=== PATIENT | male | born 1985 | race American Indian/Alaskan Native ===

== ENCOUNTER 2017-08-23 06:50 | Day surgery (SDC) | payer OTHER ==
[2017-08-23] MEDS ORDERED: ACETAMINOPHEN 500 MG TAB PO ONE (07:27)
[2017-08-23] MEDS ORDERED: ceFAZolin 2 GM/SWFI 2 GM/20 ML SYR IVP ONE (07:27)
[2017-08-23] MEDS ORDERED: LR 1,000 ML IV ONE (07:28)
[2017-08-23] MEDS ORDERED: ACETAMINOPHEN 500 MG TAB ONE (07:31)
[2017-08-23] MEDS ORDERED: THROMBIN (BOVINE) 5,000 UNIT VIAL TP ONE (07:56)
[2017-08-23] MEDS ORDERED: CHLORHEXIDINE GLUC HIBICLENS 118 ML BTL TP ONE (07:56)
[2017-08-23] MEDS ORDERED: BUPIVACAINE 0.25% 30 ML SDV ONE (07:56)
[2017-08-23] MEDS ORDERED: BACITRACIN 50,000 UNITS/10 ML SYR IRR ONE (07:56)
[2017-08-23] MEDS ORDERED: MIDAZOLAM 2 MG/2 ML VIAL IVP ONE (10:15)
--- NOTE | 2017-08-23 10:18 | PDANEPAE ---
ANE History of Present Illness 31 year old with Left back and radicular pain into leg ANE Past Medical History - Cardiovascular History Hx Hypertension: No Hx Arrhythmias: No Hx Chest Pain: No Hx Coronary Artery / Peripheral Vascular Disease: No Hx CHF / Valvular Disease: No Hx Palpitations: No - Pulmonary History Hx COPD: No Hx Asthma/Reactive Airway Disease: No Hx Recent Upper Respiratory Infection: No Hx Oxygen in Use at Home: No Hx Sleep Apnea: No Sleep Apnea Screening Result - Last Documented: Negative Pulmonary History Comment: PNEUMONIA 05/2017 TREATED WITH ANTIBIOTICS NOW RESOLVED - Neurologic History Hx Cerebrovascular Accident: No Hx Seizures: Yes Hx Dementia: No Neurologic History Comment: BRAIN TRAUMA EPLIPESY FROM FOOTBALL CONCUSSIONS 2006 - Endocrine History Hx Diabetes: No - Renal History Hx Renal Disorders: No - Liver History Hx Hepatic Disorders: No - Neurological & Psychiatric Hx Hx Neurological and Psychiatric Disorders: No - Cancer History Hx Cancer: No - Congenital Disorder History Hx Congenital Disorders: No - GI History Hx Gastrointestinal Disorders: No - Other Health History Other Health History: NT DOWN LT LEG/BUTTOCKS - Chronic Pain History Chronic Pain: Yes (NT DOWN LT LEG) - Surgical History Prior Surgeries: LT SHLDR SCOPE ANE Review of Systems Review of systems is: negative Review of Systems: - Exercise capacity METS (RN): 4 METS ANE Patient History - Allergies Allergies/Adverse Reactions: No Known Drug Allergies Allergy (Verified 08/23/17 07:41) - Home Medications Home medications: home medication list seen and reviewed Home Medications: NK [No Known Home Meds] 08/23/17 [Last Taken Unknown] - NPO status NPO Status: no food or drink >8 hours NPO Since - Liquids (Date): 08/22/17 NPO Since - Liquids (Time): 22:00 NPO Since - Solids (Date): 08/22/17 NPO Since - Solids (Time): 19:00 - Anes Hx Anes Hx: no prior problems - Smoking Hx Smoking Status: Never smoked - Alcohol Use Alcohol Use: None ANE Labs/Vital Signs - Labs Result Diagrams: 08/23/17 07:45 - Vital Signs Blood Pressure: 140/86 Heart Rate: 68 Respiratory Rate: 16 O2 Sat (%): 93 Height: 170.18 cm Weight: 79.379 kg ANE Physical Exam - Airway Neck exam: FROM Mallampati Score: Class 1 Mouth exam: normal dental/mouth exam - Pulmonary Pulmonary: no respiratory distress, clear to auscultation - Cardiovascular Cardiovascular: regular rate and rhythym - ASA Status ASA Status: I ANE Anesthesia Plan Anesthesia Plan: general endotracheal anesthesia
--- NOTE | 2017-08-23 10:30 | PDHPUP ---
History & Physical Update H&P update statement: This history and physical update is based on an assessment of the patient which was completed after admission or registration (within 24 hours), but prior to the surgery/procedure. H&P update: H&P reviewed & patient examined, no change in patient's condition since H&P completed
[2017-08-23] MEDS ORDERED: PROPOFOL 200 MG/20 ML VIAL ONE (10:32)
[2017-08-23] MEDS ORDERED: fentaNYL 100 MCG/2 ML INJ ONE ×2 (10:32→12:45)
[2017-08-23] MEDS ORDERED: KETAMINE 200 MG/20 ML VIAL ONE (10:33)
[2017-08-23] MEDS ORDERED: REMIFENTANIL HCL 1 MG VIAL ONE (10:33)
[2017-08-23] MEDS ORDERED: PROPOFOL/EMULSION 500 MG/50 ML BOTTLE IV ONE (10:34)
[2017-08-23] MEDS: SURGIFLO MATRIX KIT WITH THROMBIN 8ml TP ONE ×2 (12:03→12:10)
[2017-08-23] MEDS ORDERED: SURGIFLO MATRIX KIT WITH THROMBIN 8ml TP ONE (12:05)
--- NOTE | 2017-08-23 12:35 | GOP ---
[f rep st] OPERATIVE REPORT DATE OF OPERATION: SURGEON: Imani Nickerson DO NEUROSURGEON: Imani Nickerson DO SUBWAY TRAIN DRIVER: HOLDEN Jason. PREOPERATIVE DIAGNOSIS: L5-S1 foraminal stenosis, L5-S1 herniated nucleus pulposus, radiculopathy. POSTOPERATIVE DIAGNOSIS: L5-S1 foraminal stenosis, L5-S1 herniated nucleus pulposus, radiculopathy. PROCEDURE PERFORMED: Left L5-S1 foraminotomy, microdiskectomy. FINDINGS: SPECIMENS: None. ESTIMATED BLOOD LOSS: 10 mL. INDICATIONS: This is a 31-year-old male with severe foraminal stenosis with central bulging disk and some facet arthropathy, who has failed conservative management and elected to move forward with a fo raminotomy. DESCRIPTION OF PROCEDURE: He was identified, consented. Sites were marked. Brought to the operatin g room, anesthetized under general endotracheal tube anesthesia. Rolled onto the OR bed with a [employer] n frame. All pressure points were appropriately padded. Using an 18-gauge spinal needle we marked t he incision. He was prepped and draped in the usual sterile fashion. Incision was anesthetized with 0.5% Marcaine with epinephrine. Incision was made with a 10 blade. Hemostasis was obtained with Roderick vie and bipolar cautery, dissecting down onto the lamina of L5-S1. Using a Ada 4, took an x-ray . Verified we were in the appropriate position. Measured and placed a Shadow-Line retractor, and us ing the high-speed drill under microscope performed a foraminotomy, medial facetectomy coming down on the ligamentum flavum. Opened this with a ball-tip probe and then used 2 Kerrisons to extend this. I was unable to complete the foraminotomy without performing a microdiskectomy as there was actually a pretty large eccentric piece of disk, so taking the nerve root retractor, retracted the nerve root medially and opened the disk annulus with an 11 blade. We had immediate egress of a pretty good siz e piece of disk material. We had, previous to this, taken an x-ray verifying we were at the appropri ate level. We performed the diskectomy. This allowed us access to the foramen at the level of the d isk, and used the 2 and 3 Kerrisons to complete the foraminotomy. We were well decompressed all the way up the foramina, with the ball-tip probe passing easily. Meticulous hemostasis was obtained with bipolar cautery and irrigation. We irrigated with over a liter of gentamicin-infused saline. Remov ed the Shadow-Line retractor, removed the microscope. Closed the fascia with 0 Vicryl pop-offs, subc utaneous layer of 2-0 Vicryl pop-offs, cutaneous layer of 3-0 Vicryl pop-offs. The skin was closed w ith a 4-0 running Monocryl subcuticular stitch and Steri-Strips. Wound was dressed with gauze and Te gaderm. Neuromonitoring remained stable. Patient tolerated procedure well. No complications. FLUIDS: 850 mL crystalloid. URINE OUTPUT: None. DRAINS: None. COMPLICATIONS: None. /[id number]/MODL
[2017-08-23] MEDS ORDERED: PROMETHAZINE HCL 25 MG/ML INJ IVP PRN (12:39)
[2017-08-23] MEDS ORDERED: OXYCODONE/APAP 5/325 TAB PO PRN (12:39)
[2017-08-23] MEDS ORDERED: HYDROCODONE/APAP 5/325 TAB PO PRN (12:39)
[2017-08-23] MEDS ORDERED: NALOXONE HCL 0.4 MG/ML INJ IVP PRN (12:39)
[2017-08-23] MEDS ORDERED: ONDANSETRON 4 MG/2 ML VIAL IVP PRN (12:39)
[2017-08-23] MEDS ORDERED: MEPERIDINE 25 MG/ML SYR IVP PRN (12:39)
--- NOTE | 2017-08-23 12:40 | POSTANESTH ---
Post Anesthetic Evaluation Cardiovascular Status: Normal, Stable Respiratory Status: Normal, Stable Level of Consciousness/Mental Status: Can Participate in Eval Pain Control: Adequate, Prn Tx Ordered Nausea/Vomiting Control: Adequate, Prn Tx Ordered Complications Possibly Related to Anesthesia: None Noted
[2017-08-23] MEDS ORDERED: HYDROmorphONE/DILAUDID 1 MG/ML INJ ONE (12:47)
[2017-08-23] MEDS: HYDROmorphONE/DILAUDID 1 MG/ML INJ IVP PRN ×2 (12:51→13:06)
[2017-08-23] MEDS: fentaNYL 100 MCG/2 ML INJ IVP PRN ×2 (12:51→13:05)
--- NOTE | 2017-08-23 13:09 | POSTOPPROG ---
Post Op Note Date of Operation: 08/23/17 Surgeon: Imani Nickerson Training Generalist: Julia Hoffmann PA-C Anesthesiologist: Dr. Brown Anesthesia: GET(General Endotracheal) Pre-op Diagnosis: Lumbar radiculopathy Post-op Diagnosis: Lumbar radiculopathy Procedure: left L5/S1 foraminotomy and microdiscectomy Inf/Abcess present in the surg proc area at time of surgery?: No Depth: Deep Incisional (Fascial) EBL: Minimal Plan Plan: 31 yo male s/p left L5/S1 foraminotomy and microdiscectomy - neuro checks - pain control - advance diet as tolerated - dc home today Exam Awake. Alert Following commands LE strength full at 5/5
[2017-08-23] MEDS ORDERED: OXYCODONE/APAP 5/325 TAB ONE (13:12)
[2017-08-23 13:58] VITALS: PULSE 96; RESP 16; TEMP 97.9
[2017-08-23 14:38] VITALS: BP 131/87; O2SAT 94
== END 2017-08-23 15:03 | disposition home or self-care (01) ==
LOC: FSGY 06:50
PROVIDERS: ATTEND Neurological Surgery
PROC: 0SB40ZZ Excision of Lumbosacral Disc, Open Approach (ICD-10-PCS; principal; 2017-08-23 09:30)
DX: M99.73 Connective tissue and disc stenosis of intervertebral foramina of lumbar region (principal); M51.27 Other intervertebral disc displacement, lumbosacral region; M54.17 Radiculopathy, lumbosacral region
CPT/HCPCS: J0171; J1170; J2250; J2704; J3010